=== PATIENT | male | born 2000 | race Caucasian/White ===

== ENCOUNTER 2021-12-10 08:07 | Emergency (ER) | payer OTHER, SELFPAY ==
--- NOTE | 2021-12-10 08:10 | ED.EAR ---
HPI - Ear Problem General Chief complaint: Ear Stated complaint: earache Time Seen by Provider: 12/10/21 08:09 Source: patient Mode of arrival: ambulatory Limitations: no limitations History of Present Illness HPI Narrative: Mr. Hughes is a 21-year-old male patient presenting to the clinic today with complaints of left ear pain x2 days. He reports his ear started draining this morning. He denies any fever or chills. He denies any recent swimming or laying in a hot tub. Related Data Home Medications Medication Instructions Recorded Confirmed acyclovir 400 mg tablet 40 mg PO BID 12/10/21 12/10/21 prednisolone acetate 1 % eye 1 drp RIGHT EYE EVERY OTHER DAY 12/10/21 12/10/21 drops,suspension Allergies Allergy/AdvReac Type Severity Reaction Status Date / Time No Known Allergies Allergy Verified 12/10/21 08:25 Review of Systems Review of Systems: Pertinent positives per HPI. Patient denies any fever, chills, rash, headache, visual changes, dizziness, cough, shortness of breath, chest pain, palpitations, nausea, vomiting, diarrhea, constipation, abdominal pain, or any urinary issues. PMFSH Comments At the time of my signature, I reviewed and agree with the nursing past medical, surgical, social, and family history. There is no relevant family history pertinent to the patient complaint. Exam Narrative: General: Well-developed, well nourished, in no apparent distress Head: Normocephalic, atraumatic Eyes: Pupils equally round and reactive to light bilaterally, EOM intact, sclera and conjunctive clear, no discharge, lids normal Ears: TMs intact and clear, right ear canal clear, left ear canal red and swollen, tenderness to palpation over the tragus and pulling on the pinna, serous type of drainage, grossly hearing normal. Nose: Nares patent, clear nasal discharge, no inflammation, no sinus tenderness. Mouth: Oral pharynx without lesions or masses, good dentition, MMM. PND Neck: Supple, trachea midline, no enlargement of anterior or posterior cervical nodes, no thyroid masses or goiter palpable. Cardio: Regular rate and rhythm, s1 and s2 normal, no murmur appreciated. Resp: Clear to auscultation bilaterally, no rhonchi, rales, wheezing or rubs Course Course Emergency Course: Portions of this record may have been created with voice recognition software. Level of Care: Express Care Visit Vital Signs Vital signs: Vital signs reviewed Medical Decision Making MDM Narrative Medical decision making narrative: At the time of the patient is resting comfortably on the exam table Discharge Plan Discharge Clinical Impression: External otitis of left ear Qualifiers: Otitis externa type: diffuse Chronicity: acute Qualified Code(s): H60.312 - Diffuse otitis externa, left ear Patient Disposition: Home, Self-Care Condition: Stable Instructions: Antibiotic Form, Ear Infection (ED) Additional Instructions: Take any prescribed medications only as directed- ofloxacin as directed Tylenol/motrin as needed for pain May use heating pad to alleviate pain Avoid bottle propping if ear infection in infant. If you get recurrent ear infections it may be warranted to follow up with ENT. Follow up with your PCP in 3-5 days if symptoms persist. Prescriptions: New ofloxacin 0.3 % drops 5 drp otic (ear) BID 7 Days Qty: 5 0RF Follow-up/Referrals: UNKNOWN,DOCTOR [Non-Staff] - Time of Disposition: 08:24 Quality NIHSS Nursing Documentation ED NIHSS nursing documentation: reviewed/agree
[2021-12-10 08:18] VITALS: BP 149/86; PULSE 82; RESP 16; TEMP 36.8; O2SAT 99
== END 2021-12-10 08:30 | disposition home or self-care (01) ==
PROVIDERS: Emergency Provider Nurse Practitioner Family
DX: H60.312 Diffuse otitis externa, left ear (principal); Z94.7 Corneal transplant status
CPT/HCPCS: 99213; G0463

== ENCOUNTER 2023-01-01 14:45 | Emergency (ER) | payer OTHER, SELFPAY ==
[2023-01-01 15:04] VITALS: BP 150/83; PULSE 81; RESP 16; TEMP 37; O2SAT 100
--- NOTE | 2023-01-01 15:05 | ECG_ITS ---
Measurements Intervals [place] Rate: 77 P: 28 SC: 128 QRS: 42 QRSD: 90 T: -12 QT: 365 QTc: 415 Interpretive Statements SINUS RHYTHM NONSPECIFIC T-WAVE ABNORMALITY- INFERIOR LEADS BORDERLINE ECG NO PREVIOUS ECG AVAILABLE FOR COMPARISON Electronically Signed On 01-01-2023 19:17:48 ASSOCIATE PROFESSOR OF ARCHAEOLOGY by Conner Lopez D.O.
--- NOTE | 2023-01-01 15:33 | ED.CHESTPAIN ---
HPI - Chest Pain General Chief Complaint: Chest Pain Stated Complaint: Chest Pain/Tention; High Blood Pressure Time Seen by Provider: 01/01/23 15:07 Source: patient, RN notes reviewed and old records reviewed Mode of arrival: ambulatory Limitations: no limitations History of Present Illness HPI narrative: 22 year old male presents to [facility] care with complaints of 2 weeks of intermittent left sided chest pain in left upper chest that goes to axilla area at times. Patient reports that he does work out 4-5 times a week but doesn't precipitate his discomfort or noted any increase after working out.Patient reports that at times he has noted a pounding in his chest. Patient reports that he has stress at school but doesn't feel it is any increase than it has been with other semesters. He states that father has elevated cholesterol and high blood pressure , his grandfather has some heart disease and recently lost his grandmother to heart attack in November. Patient denies any history of asthma or any shortness of breath or any cold symptoms. MD complaint: chest pain Pertinent past history: other (none) Onset (ago): week(s) (2 weeks intermittent episodes) Prior episodes: Yes Pain location: left chest (goes to axilla at times) Pain scale (0-10): 2 Quality: dull Treatment prior to arrival: none Related Data Home Medications Medication Instructions Recorded Confirmed acyclovir 400 mg tablet 40 mg PO BID 12/10/21 01/01/23 Allergies Allergy/AdvReac Type Severity Reaction Status Date / Time No Known Allergies Allergy Verified 01/01/23 15:11 Review of Systems Review of Systems: CONSTITUTIONAL: Denies malaise, chills, sweats, or fever. EYES: Denies visual changes, redness, or discharge. ENT: Reports no rhinorrhea, congestion, sinus pain, otalgia and sore throat. CARDIOVASCULAR:Reports dull upper left chest pain,no palpitations, or edema, no dyspnea or dizziness RESPIRATORY: Reports no cough.? Denies dyspnea. GASTROINTESTINAL: Denies abdominal pain, nausea, vomiting, diarrhea SKIN: Denies rash or itching. MUSCULOSKELETAL: Denies myalgia. NEUROLOGIC: Denies headache. All systems reviewed & are unremarkable except as noted in HPI and below PMFSH Surgical History Surgical History (Updated 01/02/23 @ 11:14 by Sandy L. Lupillo, FUR BLOWER OPERATOR) History of eye surgery corneal transplant right eye Social History Social History (Updated 01/02/23 @ 11:15 by Sandy Wesley NP) Smoking status: Never smoker Alcohol intake: current Alcohol use details: social Substance use type: does not use Occupation/Education: student Gender identity (if verbalized by the patient): Male Comments At time of signature, agree with nursing past medical, surgical, social and family history. There is no relevant family history pertinent to the presenting complaint Exam Narrative: GENERAL: Well-appearing, well-nourished, and in no acute distress. HEAD: Normocephalic EYES: PERRLA, conjunctivae clear ENT: Nares clear, turbinates edematous and erythematous, clear discharge. Mucous membranes moist. TM pearly rodriguez with dull light reflex bilaterally; no tragal tenderness. Oropharynx erythematous without lesions. Tonsils not enlarged and without exudate, no drooling, no hoarseness, no trismus, uvula midline. NECK: Supple. No lymphadenopathy CHEST: Clear to auscultation, breath sounds equal. No wheezing, rhonchi, rales, or stridor. No respiratory distress, speaks in full sentences.SAO2 100% on room air, no cough SAO2 100% on room air HEART: Regular rate and rhythm. No murmur heard.dull left upper chest pain with some radiation to left axilla at times SKIN: Warm, dry, no rash. NEURO: Alert and oriented x3. PSYCH: Normal mood and affect Course Course Emergency Course: Patient is aware of diagnosis, understands and agrees to treatment plan.? Anticipatory guidance given.? Patient agrees to follow-up as directed and is a
== END 2023-01-01 15:32 | disposition short-term general hospital (02) ==
LOC: EXPGOSH 14:49
PROVIDERS: Emergency Provider Registered Nurse
DX: R07.89 Other chest pain (principal)
CPT/HCPCS: 93005; 99213; G0463

== ENCOUNTER 2023-01-01 15:53 | Emergency (ER) | payer OTHER, SELFPAY ==
--- NOTE | ~2023-01-01 | XR_ITS ---
EXAMINATION: XR chest 1V portable Exam Date/Time: 01/01/2023 16:09 BUSINESS OFFICE DIRECTOR HISTORY: cp Comparison: None. RESULT: Lines, tubes, and devices: None. Lungs and pleura: Clear. Cardiomediastinal silhouette: Unremarkable. Other: No acute osseous or upper abdominal finding. IMPRESSION: No acute cardiopulmonary process. Reviewed, dictated and finalized at location K. NESS OFFICE DIRECTOR
--- NOTE | 2023-01-01 15:54 | ECG_ITS ---
Measurements Intervals [place] Rate: 75 P: 26 IN: 146 QRS: 42 QRSD: 90 T: -2 QT: 365 QTc: 408 Interpretive Statements SINUS RHYTHM BORDERLINE T WAVE ABNORMALITY- INFERIOR LEADS BORDERLINE ECG COMPARED TO ECG 01/01/2023 15:07:41 NO SIGNIFICANT CHANGES Electronically Signed On 01-01-2023 19:18:30 FIELD TAX AUDITOR by Conner Lopez D.O.
[2023-01-01 16:03] VITALS: O2SAT 100
[2023-01-01 16:10] VITALS: BP 135/67; PULSE 75; RESP 21; O2SAT 100
[2023-01-01 16:16] LABS: Basophils Percent Auto 0.1 % (0.2-1.2); Eosinophils Absolute Auto 0.1 K/mm3 (0-0.3); Eosinophils Percent Auto 0.5 % (0-4.4); Hematocrit 47.2 % (42.0-52.0); Hemoglobin 15.7 g/dL (14.0-18.0); Immature Granulocyte Absolute 0.02 K/mm3 (0.00-0.031); Immature Granulocyte Percent A 0.2 % (0-0.5); Lymphocytes Absolute Auto 1.07 K/mm3 (0.9-3.2); Lymphocytes Percent Auto 10.8 % (18.3-44.2); Mean Corpuscular HGB Conc 33.3 g/dl (32-36); Mean Corpuscular Volume 87.2 fl (80-100); Mean Platelet Volume 10.8 fl (7.4-10.4); Monocytes Absolute Auto 0.5 K/mm3 (0.1-0.6); Monocytes Percent Auto 5.4 % (2.6-8.5); Neutrophils Absolute Auto 8.3 K/mm3 (1.3-6.7); Platelet Count Result 205 k/mm3 (150-375); Red Blood Count 5.41 M/mm3 (4.6-6.20)
[2023-01-01] MEDS: ASPIRIN 81 MG CHEWABLE TABLET 324 MG PO (16:20)
[2023-01-01 16:25] LABS: Alanine Aminotransferase 34 U/L (6-50); Albumin Level 5.1 g/dL (3.5-5.1); Alkaline Phosphatase 94 U/L (38-126); Anion Gap 12 mmol/L (8-16); Aspartate Amino Transferase 44 U/L (17-59); Bilirubin,Total 0.7 mg/dL (0.2-1.3); Blood Urea Nitrogen 12 mg/dL (9-20); Calcium 9.8 mg/dL (8.4-10.2); Carbon Dioxide 26 mmol/L (22-30); Chloride 103 mmol/L (98-107); Estimated CRCL calculation 120 ml/min; Estimated Glomerular Filt Rate > 60; Glucose 100 mg/dL (65-110); Lipase 56 U/L (23-300); Potassium 4.3 mmol/L (3.4-5.0); Sodium 141 mmol/L (137-145)
[2023-01-01 16:30] LABS: Partial Thromboplastin Time 29.2 SECONDS (22.3-36.8)
--- NOTE | 2023-01-01 16:30 | ED.CHESTPAIN ---
HPI - Chest Pain General Chief Complaint: Chest Pain Stated Complaint: chest pain Time Seen by Provider: 01/01/23 16:00 History of Present Illness HPI narrative: Patient is a 22-year-old male presenting with chest pain. Patient states that for the last 2 weeks he has had intermittent left-sided chest pain that he describes as somewhat burning soreness. States that he sometimes feels like his heart is pounding. Denies pleuritic or exertional pain. No shortness of breath, leg swelling. Reports intermittent lightheadedness. He was seen at urgent care today who advised that he come in for further evaluation. No fevers or chills, cough. No further complaints. Related Data Home Medications Medication Instructions Recorded Confirmed acyclovir 400 mg tablet 40 mg PO BID 12/10/21 01/01/23 Allergies Allergy/AdvReac Type Severity Reaction Status Date / Time No Known Allergies Allergy Verified 01/01/23 15:11 Review of Systems Review of Systems: All systems reviewed & are unremarkable except as noted in HPI and below Exam Narrative: GENERAL: Well-appearing, in no acute distress, pleasant and cooperative HEAD: Normocephalic, atraumatic. EYES: PERRLA and EOMI. ENT: Grossly unremarkable NECK: Supple. CHEST: Clear to auscultation. No respiratory distress. HEART: Regular rate and rhythm. No murmur heard. Mild tenderness of left chest wall ABDOMEN: Soft, nontender, nondistended EXTREMITIES: Normal range of motion. No edema. SKIN: Warm, dry, no rash. NEURO: No focal deficits. Alert and oriented x3. PSYCH: Normal mood and affect. Course Vital Signs Vital signs: Vital Signs Pulse Oximetry 100 01/01/23 16:03 Oxygen Delivery Room Air 01/01/23 16:03 Pulse Rate 75 01/01/23 17:29 Respiratory Rate 18 01/01/23 17:29 Blood Pressure 134/65 01/01/23 17:29 Pulse Oximetry 100 01/01/23 17:29 Oxygen Delivery Room Air 01/01/23 16:03 MDM - Chest Pain MDM Narrative Medical decision making narrative: 22-year-old male presenting with intermittent chest pain for 2 weeks. Vital stable. EKG per my interpretation shows normal sinus rhythm, normal axis and intervals, nonspecific T wave changes, no ST elevations or depressions. Blood work is unremarkable. Normal renal function. Troponin undetectable. Lipase is normal. Chest x-ray without acute abnormalities. Discussed the reassuring work-up with the patient. Feel he is safe for outpatient management. Discussed appropriate supportive care. Appropriate return precautions given. Discharged in stable condition. Differential Diagnosis Differential diagnosis: Likely atypical chest pain, costochondritis and chest pain Medical Records Data Attestation: I reviewed the patient's medical records. Lab Data Attestation: I reviewed the patient's lab results. 01/01/23 16:08 01/01/23 16:08 Labs: Lab Results 01/01/23 Range/Units 16:08 WBC 10.0 (4.5-10.0) K/mm3 RBC 5.41 (4.6-6.20) M/mm3 Hgb 15.7 (14.0-18.0) g/dL Hct 47.2 (42.0-52.0) % MCV 87.2 (80-100) fl MCH 29.0 (26-34) pg MCHC 33.3 (32-36) g/dl RDW 13.0 (11.5-14.5) % Plt Count 205 (150-375) k/mm3 MPV 10.8 H (7.4-10.4) fl Immature Gran % (Auto) 0.2 (0-0.5) % Neut % (Auto) 83.0 H (45.5-73.1) % Lymph % (Auto) 10.8 L (18.3-44.2) % Lawrence % (Auto) 5.4 (2.6-8.5) % Eos % (Auto) 0.5 (0-4.4) % Baso % (Auto) 0.1 L (0.2-1.2) % Lymph # (Auto) 1.07 (0.9-3.2) K/mm3 Lawrence # (Auto) 0.5 (0.1-0.6) K/mm3 Eos # (Auto) 0.1 (0-0.3) K/mm3 Baso # (Auto) 0.0 (0.0-0.1) K/mm3 Abs Immat Gran (auto) 0.02 (0.00-0.031) K/mm3 Absolute Neuts (auto) 8.3 H (1.3-6.7) K/mm3 Absolute Nucleated RBC 0.0 (0.0-0.012) K/mm3 Nucleated RBC % 0.0 (0.0-0.2) % PT 14.0 (11.1-14.7) Seconds INR 1.0 APTT 29.2 (22.3-36.8) SECONDS Sodium 141 (137-145) mmol/L Potassium 4.3 (3.4-5.0) mmol/L Chloride 103 (98-107) mmol/L Carbon Dioxide
[2023-01-01 16:36] LABS: Troponin I < 0.012 ng/mL (0.000-0.034)
[2023-01-01 17:29] VITALS: BP 134/65; PULSE 75; RESP 18; O2SAT 100
== END 2023-01-01 18:20 | disposition home or self-care (01) ==
PROVIDERS: Emergency Medicine; Emergency Provider Emergency Medicine
DX: R07.89 Other chest pain (principal); R94.31 Abnormal electrocardiogram [ECG] [EKG]
CPT/HCPCS: 36415; 71045; 80053; 83690; 84484; 85025; 85610; 85730; 93005; 99284; A9270

== ENCOUNTER 2023-01-24 17:14 | Emergency (ER) | payer OTHER, SELFPAY ==
--- NOTE | ~2023-01-24 | XR_ITS ---
EXAM: XR hand RT min 3V DATE: 01/24/2023 17:34 HISTORY: hand pain/swelling after injury on monday . COMPARISON: None available. FINDINGS: Normal mineralization. Oblique fracture of the proximal fourth metacarpal, with one half s haft width posterior placement and mild anterior angulation. No lytic or blastic lesion. Joint spaces are maintained. No erosion or periosteal change. Soft tissues within normal limits. IMPRESSION: Mildly displaced and angulated oblique fracture of the proximal right fourth metacarpal. Reviewed, dictated and finalized at location K. RACT OFFICER IMPRESSION: Mildly displaced and angulated oblique fracture of the proximal rig ht fourth metacarpal.
[2023-01-24 17:29] VITALS: BP 128/80; PULSE 72; RESP 16; TEMP 36.9; O2SAT 99
--- NOTE | 2023-01-24 18:30 | ED.GENADULT ---
HPI - General Adult General Chief complaint: Extremity Injury, Upper Stated complaint: Right hand pain Source: patient Mode of arrival: ambulatory Limitations: no limitations History of Present Illness HPI narrative: Patient presents for evaluation of right hand pain. Symptom onset 2 days ago. He was playing basketball and thinks the elbow of another player hit him in the land. He immediately had 9/10 pain in the affected area. Pain has actually decreased to a rating of 1/10. He has some swelling in the hand. No paresthesias. No loss of ROM but movement does make his pain worse. He is right hand dominant. Related Data Allergies Allergy/AdvReac Type Severity Reaction Status Date / Time No Known Allergies Allergy Verified 01/24/23 17:47 Review of Systems Review of Systems: CONSTITUTIONAL: Denies fever, chills, or sweats. EYES: Denies visual changes, redness, or discharge. ENT: Denies rhinorrhea, congestion, sore throat, or otalgia. CARDIOVASCULAR: Denies chest pain, or palpitations RESPIRATORY: Denies cough or dyspnea. GASTROINTESTINAL: Denies abdominal pain, nausea, vomiting, or diarrhea. GENITOURINARY: Denies dysuria or hematuria. SKIN: Denies rash or itching. MUSCULOSKELETAL: reports right hand pain and swelling. NEUROLOGIC: Denies headache, numbness, dizziness, or weakness. PSYCHIATRIC: Denies anxiety or depression. [facility] Past Medical History Medical History Herpes simplex ophthalmicus Surgical History Surgical History History of eye surgery corneal transplant right eye Family History Family History Mother Family history non-contributory Social History Social History Smoking status: Never smoker Alcohol intake: current Alcohol use details: social Substance use type: does not use Living arrangements: with roommate(s) Occupation/Education: student Gender identity (if verbalized by the patient): Male Spiritual care concerns: No Exam Narrative: GENERAL: Well-appearing, well-nourished, and in no acute distress. HEAD: Normocephalic, atraumatic. EYES: PERRLA and EOMI. ENT: Nares clear, no rhinorrhea or epistaxis. Mucous membranes moist. Oropharynx without tonsillar hypertrophy exudate or other lesions. Bilateral TMs pearly rodriguez nonbulging NECK: Supple. No adenopathy or masses. No carotid bruits or JVD CHEST: Clear to auscultation. No respiratory distress. No wheezes rales or rhonchi HEART: Regular rate and rhythm. No murmur heard. Normal peripheral pulses. ABDOMEN: Soft, nontender, nondistended, normal active bowel sounds. EXTREMITIES: There is tenderness noted over the 3rd and 4th metacarpals of the right hand There is swelling present to dorsal aspect of right hand. 4/5 hand surgical nurse practitioner strength on the right. 5/5 hand surgical nurse practitioner strength on the left. SKIN: Warm, dry, no rash. NEURO: No focal deficits. Alert and oriented x3. PSYCH: Normal mood and affect. Course Course Emergency Course: This is a 23-year-old male who presented for evaluation of right hand pain following an injury while playing basketball 2 days ago. X-ray showed a metacarpal fracture of the 4th digit of the right hand. He was splinted while here and tolerated well. He will be discharged with norar and recommendations to follow up with ortho. He was provided with a sling. He should go to the ER for intractable pain, temperature changes or paresthesias. Pt in agreement with plan of care. Level of Care: Express Care Visit Vital Signs Vital signs: Vital Signs Temperature 36.9 C 01/24/23 17:29 Pulse Rate 72 01/24/23 17:29 Respiratory Rate 16 01/24/23 17:29 Blood Pressure 128/80 01/24/23 17:29 Pulse Oximetry 99 01/24/23 17:29 Temperature 36.9 C
== END 2023-01-24 18:50 | disposition home or self-care (01) ==
PROVIDERS: Emergency Provider Nurse Practitioner
DX: S62.304A Unspecified fracture of fourth metacarpal bone, right hand, initial encounter for closed fracture (principal); W51.XXXA Accidental striking against or bumped into by another person, initial encounter; Y93.67 Activity, basketball
CPT/HCPCS: 29125; 73130; 99214; A4565; G0463

== ENCOUNTER 2023-07-08 11:42 | Emergency (ER) | payer OTHER, SELFPAY ==
--- NOTE | 2023-07-08 11:44 | ED.URI ---
HPI - URI/Sore Throat General Chief Complaint: Upper Respiratory Infection Stated Complaint: sore throat, ear aches Time Seen by Provider: 07/08/23 11:44 Source: patient Mode of arrival: ambulatory Limitations: no limitations History of Present Illness HPI Narrative: Jean Claude is a 22-year-old male patient presenting to the clinic today with complaints of bilateral ear pain and sore throat with cough and congestion that is been going on for 3 days. He denies any fever, chills, or body aches. MD elicited complaint: sore throat, nasal congestion and other (Otalgia) Related Data Home Medications Medication Instructions Recorded Confirmed acyclovir 400 mg tablet 400 mg PO BID 07/08/23 07/08/23 Allergies Allergy/AdvReac Type Severity Reaction Status Date / Time No Known Allergies Allergy Verified 07/08/23 11:54 Review of Systems Review of Systems: Pertinent positives per HPI. Patient denies any fever, chills, rash, headache, visual changes, dizziness, cough, shortness of breath, chest pain, palpitations, nausea, vomiting, diarrhea, constipation, abdominal pain, or any urinary issues. PMFSH Past Medical History Medical History Herpes simplex ophthalmicus Surgical History Surgical History History of eye surgery corneal transplant right eye Family History Family History Mother Family history non-contributory Social History Social History Smoking status: Never smoker Alcohol intake: current Alcohol use details: social Substance use type: does not use Living arrangements: with roommate(s) Occupation/Education: student Gender identity (if verbalized by the patient): Male Spiritual care concerns: No Comments At the time of my signature, I reviewed and agree with the nursing past medical, surgical, social, and family history. There is no relevant family history pertinent to the patient complaint. Exam Narrative: General: Well-developed, well nourished, in no apparent distress Head: Normocephalic, atraumatic Eyes: Pupils equally round and reactive to light bilaterally, EOM intact, sclera and conjunctive clear, no discharge, lids normal Ears: TMs intact and clear, ear canals clear, no drainage, grossly hearing normal. Nose: Nares patent, no discharge, no inflammation, no sinus tenderness. Mouth: Oral pharynx without lesions or masses, good dentition, MMM. Neck: Supple, trachea midline, no enlargement of anterior or posterior cervical nodes, no thyroid masses or goiter palpable. Cardio: Regular rate and rhythm, s1 and s2 normal, no murmur appreciated. Resp: Clear to auscultation bilaterally, no rhonchi, rales, wheezing or rubs Course Course Emergency Course: Portions of this record may have been created with voice recognition software. Level of Care: Express Care Visit Vital Signs Vital signs: Vital Signs Temperature 37.1 C 07/08/23 11:55 Pulse Rate 80 07/08/23 11:55 Respiratory Rate 16 07/08/23 11:55 Blood Pressure 128/89 07/08/23 11:55 Pulse Oximetry 100 07/08/23 11:55 Temperature 37.1 C 07/08/23 11:55 Pulse Rate 80 07/08/23 11:55 Respiratory Rate 16 07/08/23 11:55 Blood Pressure 128/89 07/08/23 11:55 Pulse Oximetry 100 07/08/23 11:55 Vital signs reviewed MDM - URI/Sore Throat MDM Narrative Medical decision making narrative: At the time of visit patient is resting comfortably on the exam table. Patient appears to be nontoxic. Labs: Rapid strep test was negative in the clinic today. We will send strep for culture Plan: I suspect patient has URI/pharyngitis/otalgia/viral syndrome. Supportive measures were discussed with the patient and they voiced understanding discharge instructions and agr
[2023-07-08 11:55] VITALS: BP 128/89; PULSE 80; RESP 16; TEMP 37.1; O2SAT 100
== END 2023-07-08 12:20 | disposition home or self-care (01) ==
PROVIDERS: Emergency Provider Nurse Practitioner Family
DX: B34.9 Viral infection, unspecified (principal); J06.9 Acute upper respiratory infection, unspecified; J02.9 Acute pharyngitis, unspecified
CPT/HCPCS: 87081; 87880; 99213; G0463

== ENCOUNTER 2023-07-13 08:03 | Emergency (ER) | payer OTHER, SELFPAY ==
--- NOTE | 2023-07-13 08:13 | ED.EAR ---
HPI - Ear Problem General Chief complaint: Ear Stated complaint: EARACHE/DRAINAGE Time Seen by Provider: 07/13/23 08:15 Source: patient, RN notes reviewed and old records reviewed Mode of arrival: ambulatory Limitations: no limitations History of Present Illness HPI Narrative: 22-year-old male presents to the [facility] with complaints of right ear pain, drainage yesterday. Started upper respiratory virus on the 04 of July. Was seen on the 18 diagnosed with URI. Patient reports most of his symptoms have better but yesterday started this a sharp right ear pain. Noticed some thick bloody and white and drainage from the ear yesterday. Denies any drainage today Has a history of ear infections. Treatment prior to arrival: none Related Data Home Medications Medication Instructions Recorded Confirmed acyclovir 400 mg tablet 400 mg PO BID 07/08/23 07/13/23 cetirizine 10 mg tablet (Zyrtec) 10 mg PO DAILY 07/13/23 07/13/23 Allergies Allergy/AdvReac Type Severity Reaction Status Date / Time No Known Allergies Allergy Verified 07/13/23 08:14 Review of Systems Review of Systems: All systems reviewed & are unremarkable except as noted in HPI and below Constitutional: Constitutional: Reports no additional constitutional complaints Eyes: Eyes: Reports no additional eye complaints ENT: Reports as per HPI, Reports ear discharge and Reports otalgia Cardiovascular: Cardiovascular: Reports no additional cardiovascular complaints, Denies chest pain and Denies dyspnea Respiratory: Respiratory: Reports no additional respiratory complaints, Denies chest congestion, Denies cough and Denies dyspnea Gastrointestinal: Gastrointestinal: Reports no additional gastrointestinal complaints, Denies abdominal pain, Denies nausea and Denies vomiting Musculoskeletal: Musculoskeletal: Reports no additional musculoskeletal complaints Integumentary/Breasts: Skin/Breast: Reports system reviewed and no additional complaints, except as docu Neurologic: Reports system reviewed and no additional complaints, except as documented Psychiatric: Psychiatric: Reports no additional psychiatric complaints Allergic/Immunologic: Allergic/Immunologic: Reports no additional allergic/immunologic complaints PMFSH Past Medical History Medical History Herpes simplex ophthalmicus Surgical History Surgical History History of eye surgery corneal transplant right eye Family History Family History Mother Family history non-contributory Social History Social History Smoking status: Never smoker Alcohol intake: current Alcohol use details: social Substance use type: does not use Living arrangements: with roommate(s) Occupation/Education: student Gender identity (if verbalized by the patient): Male Spiritual care concerns: No Comments At the time of my signature, I reviewed and agree with the nursing past medical, surgical, social, and family history. There is no relevant family history pertinent to the patient complaint. Exam Const: General: cooperative, healthy appearing, comfortable, no acute distress, well developed, alert and well nourished Nutritional Appearance: well nourished Orientation/consciousness: patient oriented x3 Limitations: no limitations HENMT: Head: normal to inspection Ears: hearing grossly normal bilaterally, external ears normal and TM abnormal bulging on the right, erythematous on the right and with myringotomy tube present on the left Face/Nose/Sinus: Normal external nose present, Normal nares present, Normal nasal mucous membranes and turbinates present, normal facial exam and face symmetric Face and sinus: normal facial exam and face symmetric Throat: posterior oropharynx normal, tonsils normal,
[2023-07-13 08:15] VITALS: BP 133/81; PULSE 84; RESP 15; TEMP 36.8; O2SAT 100
== END 2023-07-13 08:37 | disposition home or self-care (01) ==
PROVIDERS: Emergency Provider Nurse Practitioner
DX: H66.91 Otitis media, unspecified, right ear (principal); Z76.0 Encounter for issue of repeat prescription; J45.909 Unspecified asthma, uncomplicated
CPT/HCPCS: 99213; G0463

== ENCOUNTER 2023-07-23 15:30 | Emergency (ER) | payer OTHER, SELFPAY ==
[2023-07-23 15:59] VITALS: BP 143/85; PULSE 79; RESP 16; TEMP 37; O2SAT 100
--- NOTE | 2023-07-23 17:13 | ED.GENADULT ---
HPI - General Adult General Chief complaint: Ear Stated complaint: EAR CLOGGED S/P INFECTION Time Seen by Provider: 07/23/23 17:13 Source: patient Mode of arrival: ambulatory Limitations: no limitations History of Present Illness HPI narrative: 25-year-old male who came into the clinic complaints of right ear pressure, tinnitus, and hearing loss. Patient states early in mid June he had a painful earache with upper respiratory infection symptoms. Patient states he was at this Urgent Care 11 days ago. Was told he had blood and pus in is right ear and was prescribed amoxicillin. Patient states he just finished his antibiotics and his hearing has not gotten better in his right ear but the pain has gotten better. patient is currently taking Zyrtec every day. Patient denies congestion, sinus issues, and breathing problem. denies fever. Related Data Home Medications Medication Instructions Recorded Confirmed acyclovir 400 mg tablet 400 mg PO BID 07/08/23 07/13/23 cetirizine 10 mg tablet (Zyrtec) 10 mg PO DAILY 07/13/23 07/13/23 Allergies Allergy/AdvReac Type Severity Reaction Status Date / Time No Known Allergies Allergy Verified 07/13/23 08:14 Review of Systems Review of Systems: CONSTITUTIONAL: Denies fever, chills, or sweats. EYES: Denies visual changes, redness, or discharge. ENT: Denies rhinorrhea, congestion, sore throat, or otalgia. positive right ear hearing loss, pressure, and tinnitus. CARDIOVASCULAR: Denies chest pain, palpitations, or edema. RESPIRATORY: Denies cough or dyspnea. GASTROINTESTINAL: Denies abdominal pain, nausea, vomiting, or diarrhea. GENITOURINARY: Denies dysuria or hematuria. SKIN: Denies rash or itching. MUSCULOSKELETAL: Denies back pain, joint pain, or myalgia. NEUROLOGIC: Denies headache, numbness, or weakness. PSYCHIATRIC: Denies anxiety or depression. [facility] Past Medical History Medical History Herpes simplex ophthalmicus Surgical History Surgical History History of eye surgery corneal transplant right eye Family History Family History Mother Family history non-contributory Social History Social History Smoking status: Never smoker Alcohol intake: current Alcohol use details: social Substance use type: does not use Living arrangements: with roommate(s) Occupation/Education: student Gender identity (if verbalized by the patient): Male Spiritual care concerns: No Comments At the time of my signature I agree with nursing past medical history, surgical, social, and family history. There is no relevant family history pertinent to the presenting complaint. Exam Narrative: GENERAL: Well-appearing, well-nourished, and in no acute distress. HEAD: Normocephalic, atraumatic. EYES: PERRLA and EOMI. ENT: Nares clear, no rhinorrhea or epistaxis. Mucous membranes moist. left ear TM is pearly rodriguez, eustachian tube present. right ear TMS is yellow with pus fluid behind left canal negative erythema and edema right ear has scant blood cerumen NECK: Supple. No lymphadenopathy CHEST: Clear to auscultation. No respiratory distress. HEART: Regular rate and rhythm. No murmur heard. Normal peripheral pulses. ABDOMEN: Soft, nontender, nondistended, normal active bowel sounds. EXTREMITIES: Normal range of motion. No edema. SKIN: Warm, dry, no rash. NEURO: No focal deficits. Alert and oriented x3. Course Course Level of Care: Express Care Visit Vital Signs Vital signs: Vital Signs Temperature 37.0 C 07/23/23 15:59 Pulse Rate 79 07/23/23 15:59 Respiratory Rate 16 07/23/23 15:59 Blood Pressure 143/85 H 07/23/23 15:59 Pulse Oximetry 100 07/23/23 15:59 Temperature 37.0 C 07/23/23 15:59 Pulse Rate 79 07/23/23 15:59 Respirato
== END 2023-07-23 17:55 | disposition home or self-care (01) ==
PROVIDERS: Emergency Provider Nurse Practitioner Family
DX: H66.91 Otitis media, unspecified, right ear (principal)
CPT/HCPCS: 99213; G0463